=== PATIENT | female | born 1990 | race Caucasian/White ===

== ENCOUNTER 2019-10-18 09:18 | Inpatient (IN) | payer MEDICAID ==
[2019-10-13 15:50] LABS: BASOPHILS % (AUTO) 0.5 % (0-1); EOSINOPHILS # (AUTO) 0.1 X10'3 (0-0.9); EOSINOPHILS % (AUTO) 1.7 % (0-6); LYMPHOCYTES # (AUTO) 2.8 X10'3 (1.1-4.8); MEAN CORPUSCULAR HEMOGLOBIN 30.1 PG (27.0-31.0); MEAN CORPUSCULAR HGB CONC 33.1 g/dL (33.0-36.5); MEAN CORPUSCULAR VOLUME 90.9 FL (78-98); MEAN PLATELET VOLUME 7.2 FL (7.4-10.4); MONOCYTES # (AUTO) 0.4 X10'3 (0-0.9); MONOCYTES % (AUTO) 5.9 % (2-12); NEUTROPHILS # (AUTO) 4.1 X10'3 (1.8-7.7); NEUTROPHILS % (AUTO) 54.9 % (42-75); PRE OP HEMATOCRIT 40.6 % (35.0-45.0); PRE OP HEMOGLOBIN 13.5 g/dL (12.0-16.0); PRE OP PLATELET COUNT 290 X10'3 (140-440); RED BLOOD COUNT 4.47 X10'6 (4.20-5.60); RED CELL DISTRIBUTION WIDTH 13.2 % (11.5-14.5)
[2019-10-13 16:02] LABS: PRE OP INR 0.9 INR; PRE OP PROTIME 9.7 SECONDS (9.0-12.0)
[2019-10-13 16:04] LABS: ALBUMIN 3.5 G/DL (3.4-5.0); ALBUMIN/GLOBULIN RATIO 1.1 (1.1-1.5); ALKALINE PHOSPHATASE 51 IU/L (46-116); BLOOD UREA NITROGEN 13 MG/DL (7-18); BUN/CREATININE RATIO 15.5 (6.6-38.0); CALCIUM 8.7 MG/DL (8.5-10.1); CHLORIDE 109 MMOL/L (99-107); CREATININE 0.84 MG/DL (0.40-0.90); HCG SERUM QL NEGATIVE; PRE OP ALT 18 U/L (30-65); PRE OP ANION GAP 7 (8-16); PRE OP AST 21 U/L (10-37); PRE OP BILIRUB, TOTAL 0.2 MG/DL (0.0-1.0); PRE OP GLUCOSE 82 MG/DL (70-104); PRE OP POTASSIUM 3.7 MMOL/L (3.4-5.1); PRE OP SODIUM 143 MMOL/L (135-145); TOTAL CARBON DIOXIDE 26.7 MMOL/L (24-32); TOTAL PROTEIN 6.8 G/DL (6.4-8.2); eGFR 79 ML/MIN
[~2019-10-18] VITALS: Ht 162.6 cm; Wt 61.9 kg
[2019-10-18] VITALS (17 sets, daily range): BP systolic 10–130; BP diastolic 50–110
[~2019-10-18 09:18] MED LIST: ASPI-147 PO; BUPIVAcaine/PF 2.5 mg/ml (0.25%) 30ml vial ONE; FLUO20CA39 PO; LIDOcaine 1% 30ml preserv. free vial ONE; MAGN250T11 PO; VITA-268 PO; clindamycin-Cleocin 900mg/D5W 50 ML IV ONE; famotidine 20mg tablet PO ONE; gentamicin inj 300 MG in normal saline 100ml IV soln 92.5 ML IV ONE; ringers solution, lacted 1,000 ML IV SCH
[2019-10-18] MEDS ORDERED: sevoflurane 250ml liquid IH ONE (11:51)
[2019-10-18] MEDS ORDERED: fentaNYL /PF 50mcg/ml 5ml ampule ONE (11:52)
[2019-10-18] MEDS ORDERED: midazolam 2 mg/2 ml injection ONE (11:52)
[2019-10-18] MEDS ORDERED: rocuronium 10mg/ml inj IV ONE ×2 (11:52→17:04)
[2019-10-18] MEDS ORDERED: propofol inj 20 ML IV ONE (11:52)
[2019-10-18] MEDS ORDERED: dexamethasone sod phosphate 4mg/ml inj. ONE (12:04)
[2019-10-18] MEDS ORDERED: ringers solution, lacted 1,000 ML IV SCH (13:04)
[2019-10-18] MEDS ORDERED: meperidine/PF 25mg/ml syringe IV PRN ×3 (13:05)
[2019-10-18] MEDS ORDERED: ondansetron/PF 4mg/2ml inj IV PRN (13:05)
[2019-10-18] MEDS ORDERED: morphine 2 MG/ML inj. syringe IV PRN (13:05)
[2019-10-18] MEDS ORDERED: morphine 4 MG/ML inj SYRINge IV PRN (13:05)
[2019-10-18] MEDS ORDERED: proCHLORperazine 10 MG/2 ml inj IV PRN (13:05)
[2019-10-18] MEDS ORDERED: INDOCYANINE GREEN 25 MG/10 ML VIAL IV ONE (13:43)
[2019-10-18] MEDS ORDERED: fentaNYL/PF 50MCG/1 ML 2ML syringe ONE ×2 (15:55→18:04)
[2019-10-18] MEDS ORDERED: ondansetron/PF 4mg/2ml inj ONE (17:42)
[2019-10-18] MEDS ORDERED: clindamycin phosphate 150mg/ml inj. ONE (17:44)
--- NOTE | 2019-10-18 18:18 | NUR ---
Received from OR via SURGICAL BED , accompanied by Anesthesiologist JJ and report given by Anesthesiolgist. PATIENT WITH 20G PIV IN RIGHT UE URNNING LR AT 100. DENIES PAIN AT THIS TIME. ABDOMINAL ISLAND IS SLIGHTLY SPOTTED WITH BLOOD BUT CONTAINED WITHIN DRESSING . 2 ABDOMINAL BANDAIDS PRESENT WELL AND ARE CDI. VSS. SCDS DONNED. Addendum: 10/18/19 at 1827 by Jason Boyce RN, RN Amended: Links added.
[2019-10-18] MEDS ORDERED: naloxone 0.4 mg/ml inj IV PRN (18:20)
[2019-10-18] MEDS ORDERED: CADD PCA waste documentation MC PRN (18:20)
[2019-10-18] MEDS: HYDROmorphone/NS 1 mg/ml CADD 50 ML IV SCH ×4 (19:15→23:00)
--- NOTE | 2019-10-18 19:30 | NUR ---
Patient in room [facility]. I have received report from Jason GAUTAM and had the opportunity to ask questions and assume patient care.
--- NOTE | 2019-10-18 19:38 | NUR ---
ALL CRITERIA FOR DC TO THE FLOOR HAS BEEN ACHIEVED. 2 RAILS UP. BED LOW, CALL LIGHT PRESENT. GAVE REPORT TO RN . PAIN AT A TOLERABLE LEVEL AT THIS TIME. DRESSINGS CDI. CARE TURNED OVER TO DAIN PIERRE. PATIENTS RN PRESENT TO ACCEPT CARE. VSS. CADD PUMP UP AND PATIENT ONLY C.O. DISCOMFORT TO HER ARMS. UPON ARRIVAL PATIENT C.O. ABDOMINAL PAIN WELL. BOLUS GIVEN FROM CADD AND ENCOURAGED PATIENT USE. RN AWARE AND WILL CONTINUE TO ASSESS AND TREAT. CARE TURNED OVER. Addendum: 10/18/19 at 1945 by Jason Ernst - DAIN RN Amended: Links added.
[2019-10-18] MEDS: ringers solution, lacted 1,000 ML IV SCH (21:40)
[2019-10-18] MEDS ORDERED: nicotine 21mg patch - 24 hr TD SCH (21:40)
[2019-10-19] VITALS (7 sets, daily range): BP systolic 100–134; BP diastolic 64–81
[2019-10-19] MEDS: ringers solution, lacted 1,000 ML IV SCH ×3 (00:26→18:55)
[2019-10-19] MEDS: HYDROmorphone/NS 1 mg/ml CADD 50 ML IV SCH ×12 (01:00→23:00)
[2019-10-19 06:17] LABS: BASOPHILS # (AUTO) 0.1 X10'3 (0-0.2); BASOPHILS % (AUTO) 0.3 % (0-1); EOSINOPHILS % (AUTO) 0 % (0-6); HEMATOCRIT 41.4 % (35.0-45.0); HEMOGLOBIN 13.8 g/dl (12.0-16.0); LYMPHOCYTES % (AUTO) 4.9 % (21-51); MEAN CORPUSCULAR HEMOGLOBIN 29.9 PG (27.0-31.0); MEAN CORPUSCULAR HGB CONC 33.3 g/dL (33.0-36.5); MEAN CORPUSCULAR VOLUME 89.7 FL (78-98); MEAN PLATELET VOLUME 7.4 FL (7.4-10.4); MONOCYTES # (AUTO) 0.8 X10'3 (0-0.9); MONOCYTES % (AUTO) 3.8 % (2-12); NEUTROPHILS # (AUTO) 18.1 X10'3 (1.8-7.7); PLATELET COUNT 286 X10'3 (140-440); RED BLOOD COUNT 4.61 X10'6 (4.20-5.60); RED CELL DISTRIBUTION WIDTH 13.1 % (11.5-14.5); WHITE BLOOD COUNT 19.9 X10'3 (4.5-11.0)
[2019-10-19 06:19] LABS: ALBUMIN 3.2 G/DL (3.4-5.0); ANION GAP 8 (8-16); BLOOD UREA NITROGEN 8 MG/DL (7-18); BUN/CREATININE RATIO 12.1 (6.6-38.0); CALCIUM 8.4 MG/DL (8.5-10.1); CHLORIDE 107 MMOL/L (99-107); CREATININE 0.66 MG/DL (0.40-0.90); GLUCOSE 146 MG/DL (70-104); POTASSIUM 4.2 MMOL/L (3.5-5.1); SODIUM 140 MMOL/L (135-145); TOTAL CARBON DIOXIDE 25.2 MMOL/L (24-32); eGFR > 90 ML/MIN
--- NOTE | 2019-10-19 06:30 | NUR ---
Problems reprioritized. Patient report given, questions answered & plan of care reviewed with Andreina GAUTAM.
--- NOTE | 2019-10-19 06:36 | NUR ---
Patient in room [facility]. I have received report from Kalli GAUTAM and had the opportunity to ask questions and assume patient care.
[2019-10-19] MEDS: FLUoxetine 20mg capsule PO SCH (07:58)
[2019-10-19] MEDS: enoxaparin 40mg/0.4ml syringe SQ SCH (08:02)
--- NOTE | 2019-10-19 18:25 | NUR ---
Problems reprioritized. Patient report given, questions answered & plan of care reviewed with Kalli GAUTAM.
--- NOTE | 2019-10-19 18:45 | NUR ---
Patient in room [facility]. I have received report from Sofia GAUTAM and had the opportunity to ask questions and assume patient care.
[2019-10-19] MEDS: nicotine 21mg patch - 24 hr TD SCH (23:29)
[2019-10-20] MEDS: HYDROmorphone/NS 1 mg/ml CADD 50 ML IV SCH ×12 (01:00→23:00)
[2019-10-20] MEDS: ringers solution, lacted 1,000 ML IV SCH ×3 (04:57→23:10)
[2019-10-20 06:02] LABS: BASOPHILS % (AUTO) 0.2 % (0-1); EOSINOPHILS % (AUTO) 0.1 % (0-6); HEMATOCRIT 37.5 % (35.0-45.0); HEMOGLOBIN 12.5 g/dl (12.0-16.0); LYMPHOCYTES # (AUTO) 2.7 X10'3 (1.1-4.8); LYMPHOCYTES % (AUTO) 21.8 % (21-51); MEAN CORPUSCULAR HGB CONC 33.3 g/dL (33.0-36.5); MEAN CORPUSCULAR VOLUME 90.1 FL (78-98); MEAN PLATELET VOLUME 7.3 FL (7.4-10.4); MONOCYTES # (AUTO) 0.7 X10'3 (0-0.9); MONOCYTES % (AUTO) 5.8 % (2-12); NEUTROPHILS # (AUTO) 8.9 X10'3 (1.8-7.7); NEUTROPHILS % (AUTO) 72.1 % (42-75); PLATELET COUNT 261 X10'3 (140-440); RED BLOOD COUNT 4.17 X10'6 (4.20-5.60); RED CELL DISTRIBUTION WIDTH 13.1 % (11.5-14.5); WHITE BLOOD COUNT 12.3 X10'3 (4.5-11.0)
--- NOTE | 2019-10-20 06:33 | NUR ---
Problems reprioritized. Patient report given, questions answered & plan of care reviewed with Sofia GAUTAM.
--- NOTE | 2019-10-20 06:35 | NUR ---
Patient in room [facility]. I have received report from Kalli GAUTAM and had the opportunity to ask questions and assume patient care.
[2019-10-20 06:36] LABS: ANION GAP 8 (8-16); BLOOD UREA NITROGEN 5 MG/DL (7-18); BUN/CREATININE RATIO 7.8 (6.6-38.0); CALCIUM 8.3 MG/DL (8.5-10.1); CHLORIDE 104 MMOL/L (99-107); CREATININE 0.64 MG/DL (0.40-0.90); GLUCOSE 85 MG/DL (70-104); POTASSIUM 3.5 MMOL/L (3.5-5.1); SODIUM 141 MMOL/L (135-145); TOTAL CARBON DIOXIDE 29.1 MMOL/L (24-32); eGFR > 90 ML/MIN
[2019-10-20 07:00] VITALS: BP 122/72
--- NOTE | 2019-10-20 07:59 | NUR ---
Patient was notified about positive MRSA swab on nares that was done before surgery. Patient educated about MRSA nares and importance of frequent handwashing
[2019-10-20] MEDS: FLUoxetine 20mg capsule PO SCH (08:41)
[2019-10-20] MEDS: enoxaparin 40mg/0.4ml syringe SQ SCH (08:42)
[2019-10-20 11:00] VITALS: BP 123/75
[2019-10-20] MEDS: ondansetron/PF 4mg/2ml inj IV PRN ×2 (11:10→18:32)
--- NOTE | 2019-10-20 11:27 | NUR ---
Dr. Hernandez notified about positive MRSA nasal swab done preop
[2019-10-20] MEDS: ketorolac tromethamine 15mg/ml inj. IV SCH ×2 (14:09→20:11)
--- NOTE | 2019-10-20 18:05 | NUR ---
Patient in room [facility]. I have received report from Wanda GAUTAM and had the opportunity to ask questions and assume patient care.
--- NOTE | 2019-10-20 18:28 | NUR ---
Problems reprioritized. Patient report given, questions answered & plan of care reviewed with Ayesha GAUTAM.
[2019-10-20 19:52] VITALS: BP 119/80
[2019-10-20] MEDS: nicotine 21mg patch - 24 hr TD SCH (23:12)
[2019-10-20 23:56] VITALS: BP 120/72
[2019-10-21] MEDS: HYDROmorphone/NS 1 mg/ml CADD 50 ML IV SCH ×6 (01:00→11:00)
[2019-10-21] MEDS: ketorolac tromethamine 15mg/ml inj. IV SCH ×4 (02:24→19:28)
[2019-10-21 05:51] LABS: BASOPHILS % (AUTO) 0.4 % (0-1); EOSINOPHILS # (AUTO) 0.1 X10'3 (0-0.9); EOSINOPHILS % (AUTO) 0.9 % (0-6); LYMPHOCYTES # (AUTO) 2.7 X10'3 (1.1-4.8); LYMPHOCYTES % (AUTO) 33.7 % (21-51); MEAN CORPUSCULAR HEMOGLOBIN 30.9 PG (27.0-31.0); MEAN CORPUSCULAR HGB CONC 34.2 g/dL (33.0-36.5); MEAN CORPUSCULAR VOLUME 90.3 FL (78-98); MEAN PLATELET VOLUME 7.2 FL (7.4-10.4); MONOCYTES # (AUTO) 0.5 X10'3 (0-0.9); MONOCYTES % (AUTO) 6.8 % (2-12); NEUTROPHILS # (AUTO) 4.7 X10'3 (1.8-7.7); NEUTROPHILS % (AUTO) 58.2 % (42-75); PLATELET COUNT 241 X10'3 (140-440); RED BLOOD COUNT 3.87 X10'6 (4.20-5.60); RED CELL DISTRIBUTION WIDTH 13.1 % (11.5-14.5)
[2019-10-21 06:00] LABS: ALBUMIN 2.6 G/DL (3.4-5.0); ANION GAP 9 (8-16); BLOOD UREA NITROGEN 5 MG/DL (7-18); BUN/CREATININE RATIO 8.3 (6.6-38.0); CALCIUM 8.2 MG/DL (8.5-10.1); CHLORIDE 106 MMOL/L (99-107); GLUCOSE 74 MG/DL (70-104); SODIUM 141 MMOL/L (135-145); TOTAL CARBON DIOXIDE 25.7 MMOL/L (24-32); eGFR > 90 ML/MIN
--- NOTE | 2019-10-21 06:05 | NUR ---
Patient in room [facility]. I have received report from DAIN Hogde and had the opportunity to ask questions and assume patient care.
[2019-10-21 06:10] LABS: POTASSIUM 3.7 MMOL/L (3.5-5.1)
[2019-10-21 06:30] VITALS: BP 132/88
--- NOTE | 2019-10-21 06:38 | NUR ---
Problems reprioritized. Patient report given, questions answered & plan of care reviewed with Estela RN.
[2019-10-21] MEDS: FLUoxetine 20mg capsule PO SCH (07:51)
[2019-10-21] MEDS: enoxaparin 40mg/0.4ml syringe SQ SCH (07:52)
--- NOTE | 2019-10-21 10:46 | NUR ---
Student Medication Administration: For this medication-pass time frame, all medication were reviewed, dispensed, administered and documented per hospital policy by [facility] psychiatric nursing aide.
[2019-10-21 11:00] VITALS: BP 118/84
--- NOTE | 2019-10-21 11:35 | NUR ---
Patient had a one time visit from Avinash Jones he is no longer on patient list for visitation,Patient designated visitor now is Dorene Sousa approved by [facility] Surgical Director.
[2019-10-21] MEDS ORDERED: oxyCODONE/APAP 5-325mg tablet PO PRN (13:00)
[2019-10-21] MEDS: oxyCODONE/APAP 10/325mg tablet PO PRN ×2 (13:56→21:00)
[2019-10-21] MEDS ORDERED: CADD PCA waste documentation MC PRN (14:05)
--- NOTE | 2019-10-21 18:30 | NUR ---
Received report from Estela GAUTAM. Assumed patient care. Patient is awake and alert on room air. Mother Dorene is at the bedside. Call light and items of frequent use within reach.
--- NOTE | 2019-10-21 18:40 | NUR ---
Problems reprioritized. Patient report given, questions answered & plan of care reviewed with DAIN Alcocer.
[2019-10-21 19:00] VITALS: BP 127/84
[2019-10-21] MEDS ORDERED: magnesium hydroxide 30ml (MOM) UD suspension PO ONE (21:00)
[2019-10-21] MEDS: nicotine 21mg patch - 24 hr TD SCH (23:00)
[2019-10-21] MEDS ORDERED: nicotine 21mg patch - 24 hr TD SCH (23:56)
[2019-10-22] VITALS: BP 94/56
[2019-10-22] MEDS: ketorolac tromethamine 15mg/ml inj. IV SCH ×2 (01:58→08:00)
[2019-10-22] MEDS: oxyCODONE/APAP 10/325mg tablet PO PRN ×2 (03:25→09:32)
[2019-10-22 05:00] LABS: BASOPHILS % (AUTO) 0.4 % (0-1); EOSINOPHILS # (AUTO) 0.3 X10'3 (0-0.9); EOSINOPHILS % (AUTO) 3.8 % (0-6); HEMATOCRIT 36.7 % (35.0-45.0); HEMOGLOBIN 12.4 g/dl (12.0-16.0); LYMPHOCYTES # (AUTO) 2.6 X10'3 (1.1-4.8); LYMPHOCYTES % (AUTO) 37.7 % (21-51); MEAN CORPUSCULAR HEMOGLOBIN 30.1 PG (27.0-31.0); MEAN CORPUSCULAR HGB CONC 33.8 g/dL (33.0-36.5); MEAN PLATELET VOLUME 7.2 FL (7.4-10.4); MONOCYTES # (AUTO) 0.5 X10'3 (0-0.9); MONOCYTES % (AUTO) 7.8 % (2-12); NEUTROPHILS # (AUTO) 3.5 X10'3 (1.8-7.7); NEUTROPHILS % (AUTO) 50.3 % (42-75); PLATELET COUNT 253 X10'3 (140-440); RED BLOOD COUNT 4.12 X10'6 (4.20-5.60); RED CELL DISTRIBUTION WIDTH 12.6 % (11.5-14.5); WHITE BLOOD COUNT 6.9 X10'3 (4.5-11.0)
[2019-10-22 05:03] LABS: ALBUMIN 2.9 G/DL (3.4-5.0); ANION GAP 9 (8-16); BLOOD UREA NITROGEN 10 MG/DL (7-18); BUN/CREATININE RATIO 16.9 (6.6-38.0); CALCIUM 8.3 MG/DL (8.5-10.1); CHLORIDE 105 MMOL/L (99-107); CREATININE 0.59 MG/DL (0.40-0.90); GLUCOSE 70 MG/DL (70-104); POTASSIUM 3.5 MMOL/L (3.5-5.1); SODIUM 140 MMOL/L (135-145); TOTAL CARBON DIOXIDE 25.7 MMOL/L (24-32); eGFR > 90 ML/MIN
--- NOTE | 2019-10-22 06:15 | NUR ---
Patient in room [facility]. I have received report from DAIN Alcocer and had the opportunity to ask questions and assume patient care.
--- NOTE | 2019-10-22 06:25 | NUR ---
Reported off to Estela RN. Patient is awake and alert on room air. In no apparent distress. Call light and items of frequent use within reach.
[2019-10-22 06:30] VITALS: BP 124/78
[2019-10-22] MEDS: FLUoxetine 20mg capsule PO SCH (07:56)
[2019-10-22] MEDS: enoxaparin 40mg/0.4ml syringe SQ SCH (07:57)
[2019-10-22] MEDS ORDERED: PER5325T PO (09:38)
[2019-10-22 11:44] VITALS: BP 127/85
--- NOTE | 2019-10-22 12:25 | NUR ---
DC inst provided to pt & pt's aunt. IV DC'd, tip intact. All belongings sent w/pt. WC to front lobby.
== END 2019-10-22 12:25 | disposition home or self-care (01) | DRG 231 ==
LOC: PAS IN 09:18 → UNDOADMIN 09:18 → EDSTATUS 11:30 → PAS IN 18:17 → SUR 3N 19:30 → PAS IN 19:30
PROVIDERS: ADMIT Surgery; ATTEND Surgery
PROC: 0DTG0ZZ Resection of Left Large Intestine, Open Approach (ICD-10-PCS; 2019-10-18)
PROC: 0DBU0ZZ Excision of Omentum, Open Approach (ICD-10-PCS; 2019-10-18)
PROC: 0DTN4ZZ Resection of Sigmoid Colon, Percutaneous Endoscopic Approach (ICD-10-PCS; principal; 2019-10-18 11:51)
DX: C18.5 Malignant neoplasm of splenic flexure (principal); F17.210 Nicotine dependence, cigarettes, uncomplicated; Z88.0 Allergy status to penicillin; Z79.899 Other long term (current) drug therapy; Z79.82 Long term (current) use of aspirin
CPT/HCPCS: 36415; 80048; 80053; 82378; 82948; 84703; 85025; 85610; 85730; 86885; 86900; 86901; 87081; 93005; A4215; A4618; A6258; C1758; G0378; J1100; J1580; J1650; J1885; J2001; J2250; J2405; J2704; J3010; J3490; J7120

== ENCOUNTER → 2019-11-08 | Day surgery (SDC) | payer MEDICAID ==
[2019-11-02 09:53] LABS: BASOPHILS # (AUTO) 0.1 X10'3 (0-0.2); BASOPHILS % (AUTO) 1.1 % (0-1); EOSINOPHILS # (AUTO) 0.3 X10'3 (0-0.9); EOSINOPHILS % (AUTO) 4.5 % (0-6); LYMPHOCYTES # (AUTO) 1.8 X10'3 (1.1-4.8); LYMPHOCYTES % (AUTO) 25.8 % (21-51); MEAN CORPUSCULAR HEMOGLOBIN 29.9 PG (27.0-31.0); MEAN CORPUSCULAR HGB CONC 33.5 g/dL (33.0-36.5); MEAN CORPUSCULAR VOLUME 89.2 FL (78-98); MONOCYTES # (AUTO) 0.4 X10'3 (0-0.9); MONOCYTES % (AUTO) 5.8 % (2-12); NEUTROPHILS # (AUTO) 4.3 X10'3 (1.8-7.7); NEUTROPHILS % (AUTO) 62.8 % (42-75); PRE OP HEMATOCRIT 42.7 % (35.0-45.0); PRE OP HEMOGLOBIN 14.3 g/dL (12.0-16.0); PRE OP PLATELET COUNT 445 X10'3 (140-440); RED BLOOD COUNT 4.78 X10'6 (4.20-5.60); RED CELL DISTRIBUTION WIDTH 13.3 % (11.5-14.5)
[2019-11-02 10:05] LABS: ALBUMIN 3.8 G/DL (3.4-5.0); ALBUMIN/GLOBULIN RATIO 1.1 (1.1-1.5); ALKALINE PHOSPHATASE 60 IU/L (46-116); BLOOD UREA NITROGEN 9 MG/DL (7-18); BUN/CREATININE RATIO 8.9 (6.6-38.0); CALCIUM 9.3 MG/DL (8.5-10.1); CHLORIDE 105 MMOL/L (99-107); CREATININE 1.01 MG/DL (0.40-0.90); PRE OP ALT 33 U/L (30-65); PRE OP ANION GAP 10 (8-16); PRE OP AST 24 U/L (10-37); PRE OP BILIRUB, TOTAL 0.4 MG/DL (0.0-1.0); PRE OP GLUCOSE 94 MG/DL (70-104); PRE OP POTASSIUM 3.5 MMOL/L (3.4-5.1); PRE OP SODIUM 142 MMOL/L (135-145); TOTAL CARBON DIOXIDE 27.1 MMOL/L (24-32); TOTAL PROTEIN 7.4 G/DL (6.4-8.2); eGFR 64 ML/MIN
[~2019-11-08] VITALS: Ht 162.6 cm; Wt 61.2 kg
[2019-11-08] VITALS (7 sets, daily range): BP systolic 110–123; BP diastolic 63–74
[~2019-11-08] MED LIST changes: -ASPI-147 PO; +LIDOcaine 2% (20mg/ml) 5ml vial ONE; -MAGN250T11 PO; +MIDAZolam 5mg/5ml vial ONE; +SULF1TAB49 PO; -VITA-268 PO; +acetaminophen 325mg tablet PO ONE; +fentaNYL/PF 50MCG/1 ML 2ML syringe ONE; -gentamicin inj 300 MG in normal saline 100ml IV soln 92.5 ML IV ONE; +heparin 10,000 units/1 ML INJ ONE; +meperidine/PF 25mg/ml syringe IV PRN; +morphine 2 MG/ML inj. syringe IV PRN; +morphine 4 MG/ML inj SYRINge IV PRN; +ondansetron/PF 4mg/2ml inj IV PRN; +proCHLORperazine 10 MG/2 ml inj IV PRN; +propofol inj 20 ML IV ONE
--- NOTE | 2019-11-08 14:13 | NUR ---
RECEIVED FROM OR VIA [facility] ACCOMPANIED BY ANESTHESIOLOGIST DR CLARKE, REPORT GIVEN. PT AWAKE AND ALERT AND DENIES PAIN. DERMABOND DRESSING RU CHEST CDI. 20 GAUGE PIV L WRIST PATENT AND RUNNING LR AT 100 ML/HR. SKIN PINK AND WARM, ABD SOFT, GOOD CAP REFILL, VSS.
--- NOTE | 2019-11-08 15:13 | NUR ---
PT AWAKE AND ALERT AND DENIES PAIN. DERMABOND DRESSING RU CHEST CDI. 20 GAUGE PIV L WRIST PATENT AND RUNNING LR AT 100 ML/HR. SKIN PINK AND WARM, ABD SOFT, GOOD CAP REFILL, VSS.
--- NOTE | 2019-11-08 15:13 | NUR ---
20 GAUGE PIV L WRIST DC/D CATH TIP INTACT. DISCHARGE INSTRUCTIONS GIVEN AND PT VERBALIZED UNDERSTANDING. TRANSPORTED VIA WHEELCHAIR TO FAMILY MEMBER IN PRIVATE VEHICLE TO HOME
== END | disposition home or self-care (01) ==
LOC: PAS 09:36
PROVIDERS: ATTEND Surgery
DX: C18.9 Malignant neoplasm of colon, unspecified (principal); G43.909 Migraine, unspecified, not intractable, without status migrainosus; F41.9 Anxiety disorder, unspecified; Z79.899 Other long term (current) drug therapy; Z88.0 Allergy status to penicillin; Z11.59 Encounter for screening for other viral diseases; Z90.49 Acquired absence of other specified parts of digestive tract; Z98.890 Other specified postprocedural states
CPT/HCPCS: 36415; 36561; 71048; 76937; 77001; 80053; 82948; 85025; C1788; C1894; J1644; J2001; J2250; J2704; J3010; J3490; J7120; U0003; 76000; A4215; A7000